=== PATIENT | male | born 1990 | race Caucasian/White ===

== ENCOUNTER 2021-06-04 13:01 | Emergency (ER) | payer SELFPAY ==
--- NOTE | 2021-06-04 14:16 | EDM.PDOC ---
ED HPI GENERAL MEDICAL PROBLEM - General Chief Complaint: Respiratory Problem Stated Complaint: COVID POS, SOB Time Seen by Provider: 06/04/21 14:11 Source of Information: Reports: Patient - History of Present Illness INITIAL COMMENTS - FREE TEXT/NARRATIVE: 30-year-old male presents complaining of not feeling well in the setting of Covid. Patient has been symptomatic for a number of days with cough and body aches and generalized weakness and loss of taste. The county called him to notify him of positive test and when he described the symptoms he states he was told to come to the emergency department. Patient states that he had some heart condition that was being evaluated but he has not followed up. Patient denies any exacerbating or alleviating factors. - Related Data Allergies Allergy/AdvReac Type Severity Reaction Status Date / Time No Known Allergies Allergy Verified 06/04/21 13:52 Home Meds: Home Meds . [No Known Home Meds] 06/04/21 [History] Social & Family History - Tobacco Use Second Hand Smoke Exposure: No - Caffeine Use Caffeine Use: Reports: None - Recreational Drug Use Recreational Drug Use: No Drug Use in Last 12 Months: No ED ROS GENERAL - Review of Systems Review Of Systems: See Below Constitutional: Reports: Chills Respiratory: Reports: Cough Musculoskeletal: Reports: Muscle Pain Skin: Reports: No Symptoms, Rash Neurological: Reports: Other (Loss of taste) ED EXAM, GENERAL - Physical Exam Exam: See Below Free Text/Narrative:: O2 saturation 99% on room airnormal CONSTITUTIONAL: well appearing in no acute distress SKIN: dry, and intact without rash HENT: Normocephalic, atraumatic, NECK: normal range of motion PULMONARY: normal chest rise and fall, no respiratory distress or stridor lungs are clear to auscultation bilaterally. No rales or rhonchi or wheezing NEUROLOGIC: normal speech, moves all extremities, grossly non-focal MUSCULOSKELETAL: no gross deformities, atraumatic PSYCHIATRIC: normal mood and affect Course - Vital Signs Text/Narrative:: Patient presents testing positive for Covid. Patient is very well-appearing. No overt significant comorbidities. Patient's vital signs are reassuring and lungs are clear without any respiratory distress or hypoxia. Supportive treatment return precautions and PCP follow-up. Last Recorded V/S: Last Vital Signs Temp 36.3 C 06/04/21 13:48 Pulse 100 06/04/21 13:48 Resp 22 H 06/04/21 13:48 BP 157/77 H 06/04/21 13:48 Pulse Ox 95 06/04/21 13:48 Departure - Departure Time of Disposition: 14:13 Disposition: Home, Self-Care 01 Condition: Good Clinical Impression: COVID - Discharge Information Instructions: COVID-19: What to Do If You Are Sick- [facility] (10/24/2020) Referrals: PCP,None [Primary Care Provider] - Additional Instructions: For shortness of breath, change or worsening condition or lack of improvement. Follow-up with primary care doctor as needed For CDC guidelines: You can be around others after: * 10 days since symptoms first appeared and * 24 hours with no fever without the use of fever-reducing medications and * Other symptoms of COVID-19 are improving* *Loss of taste and smell may persist for weeks or months after recovery and need not delay the end of isolation? Note that these recommendations do not apply to people with severe COVID-19 or with weakened immune systems (immunocompromised). The following information is given to patients seen in the emergency department who are being discharged to home. This information is to outline your options for follow-up care. We provide all patients seen in our emergency department with a follow-up referral. The need for follow-up, as well as the timing and circumstances, are variable depending upon the specifics of your emergency department visit. If you don't have a primary care physician on staff, we will provide you with a referral. We always advise you to contact your personal physician following an emergency department visit to inform them of the circumstance of the visit and for follow-up with them and/or the need for any referrals to a consulting specialist. The emergency department will also refer you to a specialist when appropriate. This referral assures that you have the opportunity for follow-up care with a specialist. All of these measure are taken in an effort to provide you with optimal care, which includes your follow-up. Primary care clinics in the area: [facility] [address] [place] [address] [facility] [address] [place] [address] Under all circumstances we always encourage you to contact your private physician who remains a resource for coordinating your care. When calling for follow-up care, please make the office aware that this follow-up is from your recent emergency room visit. If for any reason you are refused follow-up, please contact the [facility] Emergency Department at and asked to speak to the emergency department charge nurse. Sepsis Event Note (ED) - Evaluation Sepsis Screening Result: No Definite Risk - Focused Exam Vital Signs: Vital Signs Temp Pulse Resp BP Pulse Ox 06/04/21 13:48 36.3 C 100 22 H 157/77 H 95
== END 2021-06-04 14:28 | disposition home or self-care (01) ==
LOC: MW.ED 13:01
DX: U07.1 COVID-19 (principal)
CPT/HCPCS: 99284